=== PATIENT | male | born 1995 | race Two or more races ===

== ENCOUNTER 2019-03-04 05:55 | Emergency (ER) | payer OTHER ==
[~2019-03-04] VITALS: Ht 177.8 cm; Wt 89.8 kg
[2019-03-04 06:05] VITALS: BP 137/88
[2019-03-04] MEDS ORDERED: TETRACAINE HCL 0.5% OPTH(EYE) SOLN 4ML EACHEYE ONE (07:30)
[2019-03-04] MEDS ORDERED: FLUORESCEIN SOD 1 MG TEST STRIP OP ONE (07:30)
== END 2019-03-04 07:48 | disposition home or self-care (01) ==
LOC: ER 05:55
DX: S05.02XA Injury of conjunctiva and corneal abrasion without foreign body, left eye, initial encounter (principal); X58.XXXA Exposure to other specified factors, initial encounter; Y93.89 Activity, other specified; Y92.89 Other specified places as the place of occurrence of the external cause; Y99.8 Other external cause status

== ENCOUNTER 2019-03-07 06:17 | Emergency (ER) | payer OTHER ==
[~2019-03-07] VITALS: Ht 177.8 cm; Wt 89.8 kg
[2019-03-07 08:04] VITALS: BP 121/71
[2019-03-07] MEDS ORDERED: FLUORESCEIN SOD 1 MG TEST STRIP LEFTEYE ONE (10:00)
[2019-03-07] MEDS ORDERED: TETRACAINE HCL 0.5% OPTH(EYE) SOLN 4ML LEFTEYE ONE (10:00)
== END 2019-03-07 10:49 | disposition home or self-care (01) ==
LOC: ER 06:17
DX: T15.02XA Foreign body in cornea, left eye, initial encounter (principal); Z88.8 Allergy status to other drugs, medicaments and biological substances; Z90.49 Acquired absence of other specified parts of digestive tract; X58.XXXA Exposure to other specified factors, initial encounter; Y93.89 Activity, other specified; Y92.89 Other specified places as the place of occurrence of the external cause; Y99.8 Other external cause status
CPT/HCPCS: 65220